=== PATIENT | female | born 1990 | race Caucasian/White ===

== ENCOUNTER 2020-03-28 10:49 | Outpatient (CLI) | payer OTHER ==
[2020-03-29 12:22] LABS: SARS-CoV-2 MS2 Positive; SARS-CoV-2 N Gene Negative; SARS-CoV-2 S Gene Negative; SARS-CoV-2 by NAA Not Detected (NotDetected); SARS-CoV-2 orf1ab Negative
== END 2020-03-28 10:50 | disposition home or self-care (01) ==
LOC: LABSCS 10:49
PROVIDERS: ATTEND Obstetrics & Gynecology
DX: Z20.828 Contact with and (suspected) exposure to other viral communicable diseases (principal)
CPT/HCPCS: 87635; U0003

== ENCOUNTER 2020-04-01 18:57 | Inpatient (IN) | payer BC, OTHER, SELFPAY ==
[~2020-04-01 18:57] MED LIST: Bupivacaine 0.25% HCL 30 ML VIAL ONE; Bupivacaine/Epinephrine 0.25% 30 ML VIAL ONE
[2020-04-01] MEDS ORDERED: Diphenoxylate HCl/Atropine Tablet PO PRN ×2 (19:10)
[2020-04-01] MEDS ORDERED: Ibuprofen 800 MG TAB PO PRN (19:10)
[2020-04-01] MEDS ORDERED: Promethazine HCl 25 MG/ML VIAL IM PRN (19:10)
[2020-04-01] MEDS ORDERED: Ondansetron PF 4 MG/2 ML Vial IVP PRN (19:10)
[2020-04-01] MEDS ORDERED: Acetaminophen 500 MG TAB PO PRN (19:10)
[2020-04-01] MEDS ORDERED: NS / Oxytocin 40 units/1000ml 1,000 ML IV PRN (19:10)
[2020-04-01] MEDS ORDERED: Penicillin G Potassium 5 MILL.UNITS in Sodium Chloride 0.9% 100 ML IVPB SCH (19:10)
[2020-04-01] MEDS ORDERED: HYDROcodone/Acetaminophen 5/325 mg Tablet PO PRN ×2 (19:10)
[2020-04-01] MEDS ORDERED: Butorphanol Tartrate 1 MG/ML VIAL SLOW IVP PRN (19:10)
[2020-04-01] MEDS ORDERED: Zolpidem Tartrate 5 MG TAB PO PRN (19:10)
[2020-04-01] MEDS ORDERED: hydrALAZINE 20 MG/ML VIAL SLOW IVP PRN (19:10)
[2020-04-01] MEDS ORDERED: Lidocaine 1% (PF) 30 ML VIAL SC PRN (19:10)
[2020-04-01] MEDS ORDERED: NS w/ Oxytocin 10 units 500 ML IV SCH ×2 (19:10)
[2020-04-01] MEDS ORDERED: Misoprostol 200 MCG TAB PR PRN (19:10)
[2020-04-01] MEDS ORDERED: Docusate 100 MG CAP PO PRN (19:10)
[2020-04-01] MEDS: Lactated Ringer's 1,000 ML IV SCH (19:49)
[2020-04-01] MEDS: Misoprostol 100 MCG TAB VAG SCH (19:50)
[2020-04-01 20:05] LABS: Hemoglobin 9.9 g/dL (12.0-16.0); Mean Corpuscular HGB CONC 32.6 g/dL (32.0-36.0); Mean Corpuscular Hemoglobin 24.9 pg (27.0-31.0); Mean Corpuscular Volume 76.3 fL (78.0-98.0); Mean Platelet Volume 10.5 fL (7.4-10.4); Platelet Count 187 thou/uL (130-400); RBC Distribution Width 14.1 % (11.5-14.5); Red Blood Cell (RBC) Count 3.99 mill/uL (4.20-5.40)
[2020-04-01 20:38] VITALS: BMI 25.0
[2020-04-01 20:42] LABS: Syphilis Antibody Nonreactive (Nonreactive); Syphilis Antibody Index 0.02 S/CO (<1.00 Non-Reactive)
[2020-04-01 20:43] LABS: HBSAg Index 0.15 S/CO (0-0.99); Hep B Surf Ag Non-Reactive S/CO (NonReactive)
[2020-04-01] MEDS ORDERED: diphenhydrAMINE 25 MG CAP PO SCH (22:00)
[2020-04-02] MEDS: Penicillin G 2.5 MILL.units 2.5 MILL.UNITS in Premix Bag 1 BAG IVPB SCH ×5 (01:09→13:02)
[2020-04-02] MEDS ORDERED: Fentanyl 4 mcg/Bup 0.1% Cadd 100 ML ONE (02:58)
[2020-04-02] MEDS ORDERED: Lactated Ringer's 500 ML IV PRN (03:40)
[2020-04-02] MEDS ORDERED: Promethazine HCl 25 MG/ML VIAL IM PRN (03:40)
[2020-04-02] MEDS ORDERED: diphenhydrAMINE 50 MG/ML VIAL IVP PRN (03:40)
[2020-04-02] MEDS ORDERED: Ondansetron PF 4 MG/2 ML Vial IVP PRN ×2 (03:40→08:07)
[2020-04-02] MEDS ORDERED: EPHEDRINE 25 MG/5 ML SYRINGE SLOW IVP PRN (03:40)
[2020-04-02] MEDS ORDERED: Naloxone HCl 0.4 mg/ml Vial IVP PRN ×2 (03:40)
[2020-04-02] MEDS ORDERED: Acetaminophen 325 MG TAB PO PRN (03:40)
[2020-04-02] MEDS ORDERED: Communication Order-Pharmacy FS SCH (03:45)
[2020-04-02] MEDS ORDERED: Fentanyl 4 mcg/Bupivacaine 0.1% Cassette 100 ML EPIDURAL SCH (03:45)
[2020-04-02] MEDS: NS / Oxytocin 40 units/1000ml 1,000 ML IV SCH ×2 (07:50→10:59)
[2020-04-02] MEDS ORDERED: Misoprostol 200 MCG TAB VAG PRN (08:07)
[2020-04-02] MEDS ORDERED: Bisacodyl 10 MG SUPP PR PRN (08:07)
[2020-04-02] MEDS ORDERED: Lanolin Ointment 7 GM TUBE TOP PRN (08:07)
[2020-04-02] MEDS ORDERED: Benzocaine-Menthol 82.5 ML CAN TOP PRN (08:07)
[2020-04-02] MEDS ORDERED: hydrALAZINE 20 MG/ML VIAL SLOW IVP PRN (08:07)
[2020-04-02] MEDS ORDERED: Zolpidem Tartrate 5 MG TAB PO PRN (08:07)
[2020-04-02] MEDS ORDERED: Milk Of Magnesia 30 ML UDCUP PO PRN (08:07)
[2020-04-02] MEDS ORDERED: HYDROcodone/Acetaminophen 5/325 mg Tablet PO PRN ×2 (08:07)
[2020-04-02] MEDS ORDERED: Adacel (T-DAP) 0.5 ML SYRINGE IM ONE (08:07)
[2020-04-02] MEDS: Prenatal Vitamin 1 TAB PO SCH (10:59)
[2020-04-02] MEDS: Docusate Calcium (SURFAK) 240 MG CAP PO SCH ×2 (10:59→22:07)
[2020-04-02] MEDS: Lactated Ringer's 1,000 ML IV SCH (13:02)
[2020-04-02] MEDS: Misoprostol 100 MCG TAB VAG SCH (13:02)
[2020-04-02] MEDS: Ibuprofen 800 MG TAB PO SCH ×2 (14:18→22:08)
[2020-04-02] MEDS: Ferrous Sulfate 325 MG TAB PO SCH (18:08)
[2020-04-03] MEDS: Ibuprofen 800 MG TAB PO SCH (06:16)
[2020-04-03 07:19] LABS: Hemoglobin 8.8 g/dL (12.0-16.0); Mean Corpuscular HGB CONC 30.9 g/dL (32.0-36.0); Mean Corpuscular Hemoglobin 24.4 pg (27.0-31.0); Mean Corpuscular Volume 78.9 fL (78.0-98.0); Mean Platelet Volume 10.5 fL (7.4-10.4); Platelet Count 171 thou/uL (130-400); Red Blood Cell (RBC) Count 3.62 mill/uL (4.20-5.40); White Blood Cell (WBC) Count 9.3 thou/uL (4.8-10.8)
[2020-04-03] MEDS: Prenatal Vitamin 1 TAB PO SCH (09:04)
[2020-04-03] MEDS: Docusate Calcium (SURFAK) 240 MG CAP PO SCH (09:04)
[2020-04-03] MEDS: Ferrous Sulfate 325 MG TAB PO SCH (09:04)
[2020-04-03 11:50] VITALS: BP 121/58; TEMP 97.9
--- NOTE | 2020-04-04 22:11 | PQF ---
CLINICAL DOCUMENTATION CLARIFICATION FORM: Dear : Sg Perez Date / Time: 04/04/20202209 Please exercise your independent, professional judgment in responding to the clarification form. Clinical indicators are provided on the bottom of this form for your review Please check appropriate box(es): [ X ] Associated Diagnosis: Acute blood loss Anemia [ ] Abnormal Laboratory not clinically significant [ ] Other diagnosis: Preexistaing anemia of + acute blood loss at delivery [ ] Unable to determine In addition, please specify: Present on Admission (POA): [ X ] Yes [ ] No [ ] Unable to determine Physician Signature: Date/Time: For continuity of documentation, please document condition throughout progress notes and discharge summary. Thank You. To be completed by CDI/Coding staff for physician review: Present Clinical Indicators - Signs / Symptoms / Labs Results and Location in Medical Record [X] RBC 3.99, Hgb 9.9, Hct 30.5 Laboratory 04/01 [X] RBC 3.62, Hgb 8.8, Hct 28.6 Laboratory 04/03 [X] BP 135/90, Pulse 88, Resp 16, Temp 97.9 Vital signs 04/01 [X] Estimated blood loss 200 ml Present Risk Factors Results and Location in Medical Record [X] 39 weeks IUP Scanned H&P [X] GBS positive Scanned H&P [X] s/p L&D summary [X] 2nd degree laceration L&D summary Present Treatments Results and Location in Medical Record [X] Series of hgb and hct labs Laboratory 04/01 [X] Lactated Ringers 1L SEP 30 [X] Ferrous sulfate 325 mg SEP 30 CDS/Administrative Nursing Supervisor Signature: Dixie Nicole Phone #: [phone] Date/Time: 04/04/20202209 This is a permanent part of the Medical Record [facility]
== END 2020-04-03 13:15 | disposition home or self-care (01) | DRG 806 ==
LOC: L&D/OP 18:57 → L&D 18:59 → 3SE 04-02 10:32
PROVIDERS: ADMIT Obstetrics & Gynecology; ATTEND Obstetrics & Gynecology
PROC: 10907ZC Drainage of Amniotic Fluid, Therapeutic from Products of Conception, Via Natural or Artificial Opening (ICD-10-PCS; 2020-04-01)
PROC: 3E033VJ Introduction of Other Hormone into Peripheral Vein, Percutaneous Approach (ICD-10-PCS; 2020-04-01)
PROC: 3E0P7VZ Introduction of Hormone into Female Reproductive, Via Natural or Artificial Opening (ICD-10-PCS; 2020-04-01)
PROC: 10E0XZZ Delivery of Products of Conception, External Approach (ICD-10-PCS; principal; 2020-04-02)
PROC: 0KQM0ZZ Repair Perineum Muscle, Open Approach (ICD-10-PCS; 2020-04-02)
DX: O99.824 Streptococcus B carrier state complicating childbirth (principal); D62 Acute posthemorrhagic anemia; Z37.0 Single live birth; Z3A.39 39 weeks gestation of pregnancy; O70.1 Second degree perineal laceration during delivery; O99.02 Anemia complicating childbirth
CPT/HCPCS: 36415; 85027; 86780; 86850; 86900; 86901; 87340; J2405; J2540; J2590; J3490; Q0163; S0020